=== PATIENT | male | born 1945 | race Caucasian/White ===

== ENCOUNTER 2018-07-23 13:23 | Inpatient (IN) | payer MEDICARE, MEDICAID ==
[~2018-07-23] VITALS: Ht 175.3 cm; Wt 118.8 kg
[~2018-07-23 13:23] MED LIST: ALLOPURINOL100 M1 ORAL; AMLODIPINE BESY10 MG ORAL; ASPIRIN EC81 MG ORAL; ATORVASTATIN CA40 MG ORAL; CARVEDILOL12.5 MG ORAL; FUROSEMIDE40 MG ORAL; HUMALOG100 UNIT/4 SUBQ; ISOSORBIDE1 G1 MC; LANTUS SOL100 UNIT/1 SUBQ; LOSARTAN POTAS100 MG ORAL; METFORMIN HCL500 M1 ORAL; OMEPRAZOLE20 M2 ORAL
[2018-07-23 13:40] VITALS: BP 175/81
[2018-07-23] MEDS ORDERED: Bacitracin Oint UD TOPIC ONE (14:00)
--- NOTE | 2018-07-23 14:11 | Emergency Room Report ---
History of Present Illness General Chief Complaint: Fever Source: Patient, Family Member Present Illness HPI Patient presents with 2 days of high fever and weakness. He had initial bout of chemotherapy for stage IV prostate cancer last week. Is complaining about oral lesions and pain. He states that pain is 2-3/10 and burning. He took Tylenol yesterday but has taken none today. He has some nausea. There is no vomiting. His stools are loose. They're dark in color but brown. He has difficulty urinating but this is chronic. There is no dysuria or hematuria. He is generalized weakness. No cough, chest pain, neck pain, rashes, joint pain, edema, calf pain, abdominal pain or back pain. In May 2017 he had a biopsy that showed Hoffman 4+5. He was started on Casodex and Lupron. There's spread to the femur and the pelvis and L5 and bilateral ribs with osseous metastasis. He was then started on Provenge from July 2017 08/26/2017. Radiation to the pelvic area was undertaken. Zytiga was started in addition to radiation. In June 2018 PSA was up at 4 again. He was recently changed from zytiga take to XTANDI. Other medications include insulin, vitamin D, vitamin B 12, magnesium, prednisone, Zofran, Compazine, Ativan, Decadron 4 mg, Lupron, allopurinol, Lantus, metformin, Plavix, amlodipine, Imdur, atorvastatin, Coreg, nitroglycerin , losartan, Lasix, Protonix and Flomax. He was started on docetaxel and warned about fever. Allergies: Coded Allergies: No Known Allergies (Verified , 11/07/07) Patient History Past Medical History: see triage record, old chart reviewed Social History: Denies: smoking Social History Narrative with daughter Reviewed Nursing Documentation: PMH: Agreed; PSxH: Agreed Nursing Documentation-PMH Past Medical History: No History, Except For Hx Cardiac Problems: Yes - stents x 5. Hx Hypertension: Yes Hx Diabetes: Yes Hx Cancer: Yes - skin cancer, prostate cx Hx Gastrointestinal Problems: No Hx Neurological Problems: No Review of Systems All Other Systems: negative except mentioned in HPI Physical Exam Vital Signs Date Time Temp Pulse Resp B/P (MAP) Pulse Ox O2 Delivery O2 Flow Rate FiO2 07/23/18 13:37 100.0 72 19 175/81 94 Room Air 100.0 Sp02 EP Interpretation: reviewed, normal General Appearance: well appearing, no apparent distress, GCS 15 Head: normocephalic Eyes: bilateral eye normal inspection, bilateral eye PERRL ENT: moist mucus membranes, other - chelosis, some oral lesions Neck: supple Respiratory: lungs clear, normal breath sounds Cardiovascular #1: regular rate, rhythm Cardiovascular #2: 2+ radial (R) Gastrointestinal: normal inspection, normal bowel sounds, non tender, no mass, non-distended Musculoskeletal: back normal, gait/station normal, normal range of motion Neurologic: alert, oriented x3, grossly normal Psychiatric: mood/affect normal Skin: normal inspection, warm/dry, other - venous disease Medical Decision Making Diagnostic Impression: Primary Impression: Fever Qualified Codes: R50.9 - Fever, unspecified Additional Impressions: Neutropenia Qualified Codes: D70.1 - Agranulocytosis secondary to cancer chemotherapy; T45.1X5A - Adverse effect of antineoplastic and immunosuppressive drugs, initial encounter Prostate cancer Mucositis ER Course Patient presents with fever on chemotherapy for stage of 4 prostate cancer. I differential includes sepsis, bacteremia, upper respiratory illness, oral lesions with infection, UTI, gastroenteritis amongst others. Evaluation will be with EKG, chest x-ray and labs including blood culture and lactate. Patient be treated with IV hydration, Zofran and Tylenol. EKG, no injury. CXR clear. Labs with leukopenia. UA clear. CMP high glucose , bili. Patient improved with IV hydration and tylenol. Due to leukopenia, admitted to hospital for consideration of treatment with broad spectrum antibiotics and monitoring of WBC. Discussed with Dr. Krueger who accepts the patient. Reverse isolation ordered. Laboratory Tests Test 07/23/18 14:09 07/23/18 14:35 White Blood Count 2.6 K/UL (4.8-10.8) L Red Blood Count 4.26 M/UL (4.70-6.10) L Hemoglobin 11.8 G/DL (14.2-18.0) L Hematocrit 36.7 % (42.0-52.0) L Mean Corpuscular Volume 86 FL (80-99) Mean Corpuscular Hemoglobin 27.8 PG (27.0-31.0) Mean Corpuscular Hemoglobin Concent 32.2 G/DL (32.0-36.0) Red Cell Distribution Width 12.5 % (11.6-14.8) Platelet Count 173 K/UL (150-450) Mean Platelet Volume 7.4 FL (6.5-10.1) Neutrophils (%) (Auto) % (45.0-75.0) Lymphocytes (%) (Auto) % (20.0-45.0) Monocytes (%) (Auto) % (1.0-10.0) Eosinophils (%) (Auto) % (0.0-3.0) Basophils (%) (Auto) % (0.0-2.0) Differential Total Cells Counted 100 Neutrophils % (Manual) 16 % (45-75) L Lymphocytes % (Manual) 53 % (20-45) H Monocytes % (Manual) 27 % (1-10) H Eosinophils % (Manual) 0 % (0-3) Basophils % (Manual) 0 % (0-2) Metamyelocytes % 1 % (0-0) H Myelocytes % 3 % (0-0) H Band Neutrophils 0 % (0-8) Platelet Estimate Adequate Platelet Morphology Normal Red Blood Cell Morphology Normal Prothrombin Time 10.5 SEC (9.30-11.50) Prothrombin Time INR 1.0 (0.9-1.1) PTT 29 SEC (23-33) Sodium Level 136 MMOL/L (136-145) Potassium Level 3.4 MMOL/L (3.5-5.1) L Chloride Level 103 MMOL/L (98-107) Carbon Dioxide Level 26 MMOL/L (21-32) Anion Gap 7 mmol/L (5-15) Blood Urea Nitrogen 16 mg/dL (7-18) Creatinine 1.1 MG/DL (0.55-1.30) Estimate Glomerular Filtration Rate > 60 mL/min (>60) Glucose Level 200 MG/DL (74-106) H Lactic Acid Level 1.00 mmol/L (0.4-2.0) Calcium Level 9.2 MG/DL (8.5-10.1) Magnesium Level 1.3 MG/DL (1.8-2.4) L Total Bilirubin 1.4 MG/DL (0.2-1.0) H Direct Bilirubin 0.3 MG/DL (0.0-0.3) Aspartate Amino Transferase (AST) 12 U/L (15-37) L Alanine Aminotransferase (ALT) 24 U/L (12-78) Alkaline Phosphatase 78 U/L (46-116) Total Creatine Kinase 42 U/L (26-308) Troponin I 0.010 ng/mL (0.000-0.056) Pro-B-Type Natriuretic Peptide 454 pg/mL (0-125) H Total Protein 6.3 G/DL (6.4-8.2) L Albumin 2.7 G/DL (3.4-5.0) L Globulin 3.6 g/dL Albumin/Globulin Ratio 0.8 (1.0-2.7) L Lipase 201 U/L (73-393) Urine Color Yellow Urine Appearance Clear Urine pH 6.5 (4.5-8.0) Urine Specific [place] 1.010 (1.005-1.035) Urine Protein 2+ (NEGATIVE) H Urine Glucose (UA) Negative (NEGATIVE) Urine Ketones Negative (NEGATIVE) Urine Blood Negative (NEGATIVE) Urine Nitrite Negative (NEGATIVE) Urine Bilirubin Negative (NEGATIVE) Urine Urobilinogen Normal MG/DL (0.0-1.0) Urine Leukocyte Esterase Negative (NEGATIVE) Urine RBC 0 /HPF (0 - 0) Urine WBC 0 /HPF (0 - 0) Urine Squamous Epithelial Cells None /LPF (NONE/OCC) Urine Amorphous Sediment Few /LPF (NONE) H Urine Bacteria None /HPF (NONE) EKG Diagnostic Results Rate: normal Rhythm: NSR ST Segments: no acute changes - RBBB 1st degree AV block, LVH Rhythm Strip Diag. Results EP Interpretation: yes Rhythm: NSR, no PVC's, no ectopy Chest X-Ray Diagnostic Results Chest X-Ray Diagnostic Results : Chest X-Ray Ordered: Yes # of Views/Limited/Complete: 1 View Indication: Other EP Interpretation: Yes Interpretation: no consolidation, no effusion, no pneumothorax, no acute cardiopulmonary disease Impression: No acute disease Electronically Signed by: Electronically signed by Hector Torres MD Last Vital Signs Date Time Temp Pulse Resp B/P (MAP) Pulse Ox O2 Delivery O2 Flow Rate FiO2 07/23/18 15:59 99.4 72 17 122/61 96 Room Air 99.4 Status: improved Disposition: ADMITTED INPATIENT Condition: Serious Hector Torres M.D. Jul 23, 2018 14:11
--- NOTE | 2018-07-23 14:27 | Diagnostic Imaging Report ---
EXAM: XR Chest, 1 View CLINICAL HISTORY: WEAK TECHNIQUE: Frontal view of the chest. COMPARISON: Chest x-ray dated 09/14/15 FINDINGS: Lungs: Unremarkable. The lungs appear clear. No confluent pulmonary opacities. Pleural space: Unremarkable. The costophrenic angles are sharp. No visible pneumothorax. Heart: Cardiomegaly. Mediastinum: Unremarkable. Bones/joints: Unremarkable. Tubes, lines and devices: EKG leads overlie the thorax. IMPRESSION: Cardiomegaly.
[2018-07-23 14:31] LABS: HEMATOCRIT 36.7 % (42.0-52.0); HEMOGLOBIN 11.8 G/DL (14.2-18.0); MEAN CORPUSCULAR VOLUME 86 FL (80-99); PLATELET COUNT 173 K/UL (150-450); RED BLOOD COUNT 4.26 M/UL (4.70-6.10); RED CELL DISTRIBUTION WIDTH 12.5 % (11.6-14.8); WHITE BLOOD COUNT 2.6 K/UL (4.8-10.8)
[2018-07-23 14:37] LABS: ANION GAP 7 mmol/L (5-15); BLOOD UREA NITROGEN 16 mg/dL (7-18); CALCIUM 9.2 MG/DL (8.5-10.1); CARBON DIOXIDE 26 MMOL/L (21-32); CHLORIDE 103 MMOL/L (98-107); CREATININE 1.1 MG/DL (0.55-1.30); POTASSIUM 3.4 MMOL/L (3.5-5.1); SODIUM 136 MMOL/L (136-145)
[2018-07-23 14:53] LABS: ALANINE AMINOTRANSFERASE 24 U/L (12-78); ALBUMIN 2.7 G/DL (3.4-5.0); ALBUMIN/GLOBULIN RATIO 0.8 (1.0-2.7); ALKALINE PHOSPHATASE 78 U/L (46-116); ASPARTATE AMINO TRANSFERASE 12 U/L (15-37); BILIRUBIN,TOTAL 1.4 MG/DL (0.2-1.0); CREATINE KINASE 42 U/L (26-308)
[2018-07-23 14:54] LABS: BILIRUBIN,DIRECT 0.3 MG/DL (0.0-0.3)
[2018-07-23 15:03] LABS: APPEARANCE,URINE CLEAR; BILIRUBIN, URINE NEGATIVE (NEGATIVE); GLUCOSE, URINE (UA) NEGATIVE (NEGATIVE); KETONES,URINE NEGATIVE (NEGATIVE); LEUKOCYTE ESTERASE ,URINE NEGATIVE (NEGATIVE); NITRITE,URINE NEGATIVE (NEGATIVE); PH,URINE 6.5 (4.5-8.0); PROTEIN,URINE 2+ (NEGATIVE); UROBILINOGEN,URINE NORMAL MG/DL (0.0-1.0)
[2018-07-23 15:04] LABS: COLOR,URINE YELLOW
[2018-07-23] MEDS ORDERED: DELTASONE20 MG PO (15:47)
[2018-07-23] MEDS ORDERED: NITROSTAT0.4 M1 SL (15:47)
[2018-07-23] MEDS ORDERED: VITAMIN D250000 UNI1 ORAL (15:47)
[2018-07-23] MEDS ORDERED: PROTONIX40 MG ORAL (15:47)
[2018-07-23] MEDS ORDERED: COZAAR50 MG ORAL (15:47)
[2018-07-23] MEDS ORDERED: DEXAMETHASONE2 MG PO (15:47)
[2018-07-23] MEDS ORDERED: TAMSULOSIN HCL0.4 MG ORAL (15:47)
[2018-07-23] MEDS ORDERED: MAGNESIUM200 M1 PO (15:47)
[2018-07-23] MEDS ORDERED: NOVOLOG100 UNITS1 SUBQ (15:47)
[2018-07-23] MEDS ORDERED: LEUPROLIDE1 MG/0.2 M SQ (15:47)
[2018-07-23] MEDS ORDERED: COMPAZINE10 MG ORAL (15:47)
[2018-07-23] MEDS ORDERED: ATIVAN1 MG ORAL (15:47)
[2018-07-23] MEDS ORDERED: VITAMIN B-12500 MCG ORAL (15:47)
[2018-07-23] MEDS ORDERED: PLAVIX75 MG ORAL (15:47)
[2018-07-23] MEDS ORDERED: ZOFRAN4 M3 ORAL (15:47)
[2018-07-23] MEDS ORDERED: FUROSEMIDE20 M1 ORAL (15:47)
[2018-07-23] MEDS ORDERED: Mylanta II UD 30ml ORAL PRN (15:52)
[2018-07-23 15:59] VITALS: BP 122/61
[2018-07-23] MEDS ORDERED: Cefepime HCl 2 GM in D5W 55 ML IVPB SCH (16:00)
[2018-07-23] MEDS ORDERED: Vancomycin 1 GM in D5W 275 ML IVPB SCH (16:00)
[2018-07-23 16:30] VITALS: BP 139/74
[2018-07-23] MEDS: 1/2NS w/KCl 20mEq 1000ml 1,000 ML IV SCH (17:34)
[2018-07-23] MEDS: Cefepime HCl 2 GM in D5W 55 ML IVPB SCH (17:35)
[2018-07-23] MEDS: NovoLOG Insulin Flexpen SUBQ SCH ×2 (17:36→20:44)
--- NOTE | 2018-07-23 18:16 | History and Physical ---
History of Present Illness General Date patient seen: Jul 23, 2018 Time patient seen: 17:00 Reason for Hospitalization: Fever Present Illness HPI 72 year old man with history of CAD, DM, HTN, stage 4 prostate cancer with bony mets, followed by Dr. Gold as outpatient, initiated on chemotherapy with docetaxel on 07/13/18 who presents with 2 days of progressive fatigue, weakness and fever up up to 100.3. Denies headache, neck stiffness, CP, dyspnea, cough, abdominal pain. Mild diarrhea reported and oral ulcers. In ED no definite source of infection was found and he was referred for admission. Allergies: Coded Allergies: No Known Allergies (Verified , 11/07/07) Medication History Scheduled Allopurinol* (Allopurinol*), 100 MG ORAL DAILY, (Reported) Amlodipine Besylate* (Amlodipine Besylate*), 10 MG ORAL DAILY, (Reported) Aspirin Ec* (Aspirin Ec*), 81 MG ORAL DAILY, (Reported) Atorvastatin Calcium* (Atorvastatin Calcium*), 80 MG ORAL BEDTIME, (Reported) Carvedilol* (Carvedilol*), 12.5 MG ORAL BID, (Reported) Clopidogrel Bisulfate* (Plavix*), 75 MG ORAL DAILY, (Reported) Cyanocobalamin (Vitamin B-12)* (Vitamin B-12*), 1,000 MCG ORAL DAILY, (Reported) Dexamethasone* (Decadron*), 4 MG PO BID, (Reported) Ergocalciferol (Vitamin D2)* (Vitamin D*), 2,000 MG ORAL ONCE A WEEK, (Reported) Furosemide* (Lasix*), 40 MG ORAL DAILY, (Reported) Furosemide* (Lasix*), 20 MG ORAL DAILY, (Reported) Insulin Aspart (Novolog Flexpen), 20 UNITS SUBQ AC, (Reported) Insulin Glargine (Lantus), 0 SUBQ BEDTIME, (Reported) Lorazepam* (Ativan*), 1 MG ORAL THREE TIMES A DAY, (Reported) Losartan Potassium (Losartan Potassium), 100 MG ORAL DAILY, (Reported) Losartan Potassium* (Cozaar*), 100 MG ORAL DAILY, (Reported) Metformin Hcl* (Metformin Hcl*), 100 MG ORAL BID, (Reported) Omeprazole (Omeprazole), 20 MG ORAL DAILY, (Reported) Pantoprazole* (Protonix*), 40 MG ORAL DAILY, (Reported) Prednisone (Deltasone), 5 MG PO BID, (Reported) Tamsulosin Hcl (Tamsulosin Hcl*), 0.4 MG ORAL BEDTIME, (Reported) Scheduled PRN Nitroglycerin (Nitrostat), 0.4 MG SL Q5M X3 DOSES PRN for CHEST PAIN, (Reported) Ondansetron* (Zofran*), 8 MG ORAL Q6H PRN for Nausea & Vomiting, (Reported) Prochlorperazine (Compazine*), 10 MG ORAL Q6H PRN for Nausea & Vomiting, ( Reported) Miscellaneous Medications Insulin Lispro (Humalog), Unknown Dose SUBQ, (Reported) Isosorbide (Isosorbide), 30 MG MC, (Reported) Leuprolide Acetate (Leuprolide Acetate), 1 MG SQ, (Reported) Magnesium (Magnesium), 400 MG PO, (Reported) Patient History Healthcare decision maker Resuscitation status Full Code Advanced Directive on File No Family History Family History: FHx: diabetes mellitus Social History Social History: (1) Former smoke Review of Systems Constitutional: Reports: chills, fever Eye: Denies: eye pain, blurred vision, double vision ENT: Denies: ear pain, ear discharge Respiratory: Denies: cough, orthopnea, shortness of breath Cardiovascular: Denies: chest pain, edema Gastrointestinal: Reports: diarrhea; Denies: abdominal pain Genitourinary: Denies: discharge, dysuria, frequency Musculoskeletal: Denies: joint pain, muscle pain Skin: Denies: rash, change in hair/nails Neurological: Denies: headache, numbness, paresthesia Endocrine: Denies: excessive sweating, flushing Hematologic/Lymphatic: Denies: anemia, blood clots Physical Exam General Appearance: no apparent distress, alert HEENT: normocephalic, atraumatic, other - Oral aphthous ulcers noted Neck: non-tender, supple Respiratory/Chest: chest wall non-tender, lungs clear, normal breath sounds Cardiovascular/Chest: normal peripheral pulses, normal rate, regular rhythm Abdomen: normal bowel sounds, non tender, soft, no organomegaly Extremities: normal range of motion, non-tender, normal inspection, no calf tenderness Skin Exam: normal pigmentation, warm/dry Neurologic: standard machine stitcher II-XII grossly normal, no motor/sensory deficits Musculoskeletal: normal muscle bulk, no effusion Last 24 Hour Vital Signs Date Time Temp Pulse Resp B/P (MAP) Pulse Ox O2 Delivery O2 Flow Rate FiO2 07/23/18 16:50 99.4 72 17 122/61 96 Room Air 99.4 07/23/18 16:47 Room Air 07/23/18 15:59 99.4 72 17 122/61 96 Room Air 99.4 07/23/18 15:00 99.4 07/23/18 14:30 100.0 07/23/18 13:40 100.0 72 19 175/81 94 Room Air 100.0 07/23/18 13:37 100.0 72 19 175/81 94 Room Air 100.0 Laboratory Tests Test 07/23/18 14:09 07/23/18 14:35 White Blood Count 2.6 K/UL (4.8-10.8) L Red Blood Count 4.26 M/UL (4.70-6.10) L Hemoglobin 11.8 G/DL (14.2-18.0) L Hematocrit 36.7 % (42.0-52.0) L Mean Corpuscular Volume 86 FL (80-99) Mean Corpuscular Hemoglobin 27.8 PG (27.0-31.0) Mean Corpuscular Hemoglobin Concent 32.2 G/DL (32.0-36.0) Red Cell Distribution Width 12.5 % (11.6-14.8) Platelet Count 173 K/UL (150-450) Mean Platelet Volume 7.4 FL (6.5-10.1) Neutrophils (%) (Auto) % (45.0-75.0) Lymphocytes (%) (Auto) % (20.0-45.0) Monocytes (%) (Auto) % (1.0-10.0) Eosinophils (%) (Auto) % (0.0-3.0) Basophils (%) (Auto) % (0.0-2.0) Differential Total Cells Counted 100 Neutrophils % (Manual) 16 % (45-75) L Lymphocytes % (Manual) 53 % (20-45) H Monocytes % (Manual) 27 % (1-10) H Eosinophils % (Manual) 0 % (0-3) Basophils % (Manual) 0 % (0-2) Metamyelocytes % 1 % (0-0) H Myelocytes % 3 % (0-0) H Band Neutrophils 0 % (0-8) Platelet Estimate Adequate Platelet Morphology Normal Red Blood Cell Morphology Normal Prothrombin Time 10.5 SEC (9.30-11.50) Prothromb Time International Ratio 1.0 (0.9-1.1) Activated Partial Thromboplast Time 29 SEC (23-33) Sodium Level 136 MMOL/L (136-145) Potassium Level 3.4 MMOL/L (3.5-5.1) L Chloride Level 103 MMOL/L (98-107) Carbon Dioxide Level 26 MMOL/L (21-32) Anion Gap 7 mmol/L (5-15) Blood Urea Nitrogen 16 mg/dL (7-18) Creatinine 1.1 MG/DL (0.55-1.30) Estimat Glomerular Filtration Rate > 60 mL/min (>60) Glucose Level 200 MG/DL (74-106) H Lactic Acid Level 1.00 mmol/L (0.4-2.0) Calcium Level 9.2 MG/DL (8.5-10.1) Magnesium Level 1.3 MG/DL (1.8-2.4) L Total Bilirubin 1.4 MG/DL (0.2-1.0) H Direct Bilirubin 0.3 MG/DL (0.0-0.3) Aspartate Amino Transf (AST/SGOT) 12 U/L (15-37) L Alanine Aminotransferase (ALT/SGPT) 24 U/L (12-78) Alkaline Phosphatase 78 U/L (46-116) Total Creatine Kinase 42 U/L (26-308) Troponin I 0.010 ng/mL (0.000-0.056) Pro-B-Type Natriuretic Peptide 454 pg/mL (0-125) H Total Protein 6.3 G/DL (6.4-8.2) L Albumin 2.7 G/DL (3.4-5.0) L Globulin 3.6 g/dL Albumin/Globulin Ratio 0.8 (1.0-2.7) L Lipase 201 U/L (73-393) Urine Color Yellow Urine Appearance Clear Urine pH 6.5 (4.5-8.0) Urine Specific [place] 1.010 (1.005-1.035) Urine Protein 2+ (NEGATIVE) H Urine Glucose (UA) Negative (NEGATIVE) Urine Ketones Negative (NEGATIVE) Urine Blood Negative (NEGATIVE) Urine Nitrite Negative (NEGATIVE) Urine Bilirubin Negative (NEGATIVE) Urine Urobilinogen Normal MG/DL (0.0-1.0) Urine Leukocyte Esterase Negative (NEGATIVE) Urine RBC 0 /HPF (0 - 0) Urine WBC 0 /HPF (0 - 0) Urine Squamous Epithelial Cells None /LPF (NONE/OCC) Urine Amorphous Sediment Few /LPF (NONE) H Urine Bacteria None /HPF (NONE) Height (Feet): 5 Height (Inches): 9.00 Weight (Pounds): 262 Medications Current Medications Medications (Trade) Dose Ordered Sig/Ashly Route PRN Reason Start Time Stop Time Status Last Admin Dose Admin Acetaminophen (Tylenol) 650 mg Q4H PRN ORAL Mild Pain (Pain Scale 1-3) 07/23/18 15:51 08/22/18 15:50 Al Hydroxide/Mg Hydroxide (Mylanta II) 30 ml Q6H PRN ORAL dyspepsia 07/23/18 15:52 08/22/18 15:51 Allopurinol (Zyloprim) 100 mg DAILY ORAL 07/24/18 09:00 08/23/18 08:59 UNV Amlodipine Besylate (Norvasc) 10 mg DAILY ORAL 07/24/18 09:00 08/23/18 08:59 UNV Aspirin (Ecotrin) 81 mg DAILY ORAL 07/24/18 09:00 08/23/18 08:59 UNV Atorvastatin Calcium (Lipitor) 80 mg BEDTIME ORAL 07/23/18 21:00 08/22/18 20:59 UNV Carvedilol (Coreg) 12.5 mg BID ORAL 07/23/18 18:00 08/22/18 17:59 UNV Cefepime HCl 2 gm/ Dextrose 55 ml @ 110 mls/hr Q12H IVPB 07/23/18 17:00 07/30/18 16:59 07/23/18 17:35 Clopidogrel Bisulfate (Plavix) 75 mg DAILY ORAL 07/24/18 09:00 08/23/18 08:59 UNV Cyanocobalamin (Vitamin B-12) 1,000 mcg DAILY ORAL 07/24/18 09:00 08/23/18 08:59 UNV Dexamethasone (Decadron) 4 mg BID ORAL 07/23/18 18:00 08/22/18 17:59 UNV Dextrose (Dextrose 50%) 25 ml Q30M PRN IV Hypoglycemia 07/23/18 15:53 08/22/18 15:52 Dextrose (Dextrose 50%) 50 ml Q30M PRN IV Hypoglycemia 07/23/18 15:52 08/22/18 15:51 Diphenhydramine HCl (Benadryl) 25 mg Q6H PRN ORAL Itching/Pruritis 07/23/18 15:52 08/22/18 15:51 Docusate Sodium (Colace) 100 mg EVERY 12 HOURS ORAL 07/23/18 21:00 08/22/18 20:59 Furosemide (Lasix) 20 mg DAILY ORAL 07/24/18 09:00 08/23/18 08:59 UNV Heparin Sodium (Porcine) (Heparin 5000 units/ml) 5,000 units EVERY 12 HOURS SUBQ 07/23/18 21:00 08/22/18 20:59 Insulin Aspart (NovoLOG) BEFORE MEALS AND HS SUBQ 07/23/18 16:30 08/22/18 16:29 07/23/18 17:36 Insulin Aspart (NovoLOG) 20 units BEFORE MEALS SUBQ 07/24/18 06:30 08/23/18 06:29 UNV Losartan Potassium (Cozaar) 100 mg DAILY ORAL 07/24/18 09:00 08/23/18 08:59 UNV Ondansetron HCl (Zofran) 4 mg Q6H PRN IVP Nausea & Vomiting 07/23/18 15:51 08/22/18 15:50 Pantoprazole (Protonix) 40 mg DAILY ORAL 07/24/18 09:00 08/23/18 08:59 UNV Polyethylene Glycol (Miralax) 17 gm HSPRN PRN ORAL Constipation 07/23/18 21:00 08/22/18 20:59 Sodium 1,000 ml @ 75 mls/hr [id number] IV 07/23/18 17:00 08/22/18 16:59 07/23/18 17:34 Sodium Chloride 1,000 ml @ 300 mls/hr Q3H20M IV 07/23/18 14:00 08/22/18 13:59 07/23/18 14:22 Tamsulosin HCl (Flomax) 0.4 mg BEDTIME ORAL 07/23/18 21:00 08/22/18 20:59 UNV Vancomycin HCl 1 gm/Dextrose 275 ml @ 183.708 mls/hr Q12H IVPB 07/23/18 18:00 07/28/18 17:59 Assessment/Plan Problem List: (1) Sepsis ICD Codes: A41.9 - Sepsis, unspecified organism SNOMED: 01226016 (2) Neutropenia ICD Codes: D70.9 - Neutropenia, unspecified SNOMED: 576598741 Qualifiers: Qualified Codes: D70.1 - Agranulocytosis secondary to cancer chemotherapy; T45.1X5A - Adverse effect of antineoplastic and immunosuppressive drugs, initial encounter (3) Prostate cancer ICD Codes: C61 - Malignant neoplasm of prostate SNOMED: 109084689 Assessment/Plan 72 year old man undergoing chemotherapy for stage 4 prostate cancer with bony mets who presents with fever, malaise and weakness, found to have febrile neutropenia. 1)Sepsis, neutropenia without a source, will admit to telemetry unit, start broad spectrum antibiotic with vancomycin and cefepime per my discussion with ID. Monitor vancomycin levels per protocol. Check blood cultures. 2)History of stage IV prostate cancer, neutropenia, neutropenic precautions, spoke with Onc who will see patient, may benefit from Neupogen 3)CAD, Essential HTN, continue outpatient antihypertensives and monitor vitals 4)Type 2 DM, variable control, resume home Lantus dosing along with ISS 5)Mild hypokelamia and hypomagnesemia, replace with IV fluids and check BMP in AM VTE PPx heparin SC Full Code Patient will require a hospitalization crossing 2 midnights in order to get IV antibiotics and close hemodynamic monitoring. He is high risk for progression to severe sepsis and shock given his immunocompromised state. Abhi Gardner MD Jul 23, 2018 18:16
[2018-07-23] MEDS: Vancomycin 1 GM in D5W 275 ML IVPB SCH (19:57)
[2018-07-23 20:00] VITALS: BP 129/60
[2018-07-23] MEDS: Levemir Flexpen SUBQ SCH (20:17)
[2018-07-23] MEDS: Atorvastatin 80mg tab ORAL SCH (20:41)
[2018-07-23] MEDS: Tamsulosin 0.4mg cap ORAL SCH (20:41)
[2018-07-23] MEDS: Docusate 100mg cap ORAL SCH (20:41)
[2018-07-23] MEDS: Heparin 5000 units/ml inj SUBQ SCH (20:42)
[2018-07-23] MEDS: Carvedilol 12.5mg tab ORAL SCH (20:49)
[2018-07-23] MEDS ORDERED: Miralax 17gm pkt ORAL PRN (21:00)
[2018-07-24] VITALS (7 sets, daily range): BP systolic 141–149; BP diastolic 72–86
[2018-07-24] MEDS: Cefepime HCl 2 GM in D5W 55 ML IVPB SCH (05:34)
[2018-07-24] MEDS: Vancomycin 1 GM in D5W 275 ML IVPB SCH (06:22)
[2018-07-24] MEDS: 1/2NS w/KCl 20mEq 1000ml 1,000 ML IV SCH ×2 (06:23→20:48)
[2018-07-24] MEDS: NovoLOG Insulin Flexpen SUBQ SCH ×7 (06:31→20:50)
[2018-07-24 08:25] LABS: HEMATOCRIT 37.5 % (42.0-52.0); HEMOGLOBIN 12.4 G/DL (14.2-18.0); MEAN CORPUSCULAR VOLUME 87 FL (80-99); PLATELET COUNT 166 K/UL (150-450); RED BLOOD COUNT 4.31 M/UL (4.70-6.10); RED CELL DISTRIBUTION WIDTH 12.3 % (11.6-14.8)
[2018-07-24 08:27] LABS: WHITE BLOOD COUNT 1.9 K/UL (4.8-10.8)
[2018-07-24] MEDS: Docusate 100mg cap ORAL SCH ×2 (08:46→20:48)
[2018-07-24] MEDS: Losartan 50mg tab ORAL SCH (08:46)
[2018-07-24] MEDS: Allopurinol 100mg Tab ORAL SCH (08:47)
[2018-07-24] MEDS: Aspirin EC 81mg tab ORAL SCH (08:47)
[2018-07-24] MEDS: Carvedilol 12.5mg tab ORAL SCH ×2 (08:47→20:48)
[2018-07-24] MEDS: Vitamin B-12 500mcg tab ORAL SCH (08:47)
[2018-07-24 08:49] LABS: ALANINE AMINOTRANSFERASE 26 U/L (12-78); ALBUMIN 2.7 G/DL (3.4-5.0); ALBUMIN/GLOBULIN RATIO 0.7 (1.0-2.7); ALKALINE PHOSPHATASE 75 U/L (46-116); ANION GAP 10 mmol/L (5-15); ASPARTATE AMINO TRANSFERASE 11 U/L (15-37); BILIRUBIN,TOTAL 1.5 MG/DL (0.2-1.0); BLOOD UREA NITROGEN 13 mg/dL (7-18); CALCIUM 8.8 MG/DL (8.5-10.1); CARBON DIOXIDE 26 MMOL/L (21-32); CHLORIDE 105 MMOL/L (98-107); CREATININE 0.9 MG/DL (0.55-1.30); POTASSIUM 3.6 MMOL/L (3.5-5.1); SODIUM 140 MMOL/L (136-145)
[2018-07-24] MEDS: Heparin 5000 units/ml inj SUBQ SCH ×2 (08:51→20:49)
[2018-07-24] MEDS: Levemir Flexpen SUBQ SCH ×2 (08:52→17:11)
[2018-07-24 08:56] LABS: BILIRUBIN,DIRECT 0.2 MG/DL (0.0-0.3)
[2018-07-24] MEDS ORDERED: TBO-Filgrastim 300 mcg/0.5ml SQ ONE (10:00)
--- NOTE | 2018-07-24 14:49 | Consultation ---
Consult Note Consult Note Oncology Consultation SAMREEN OLIVAS: Singh Bangura DOS: 07/24/2018 RFC: Prostate cancer and leukopenia HPI 72 year old man with history of CAD, DM, HTN, stage 4 prostate cancer with bony mets, followed by Dr. Gold as outpatient, initiated on chemotherapy with docetaxel on 07/13/18 who presents with 2 days of progressive fatigue, weakness and fever up up to 100.3. Denies headache, neck stiffness, CP, dyspnea, cough, abdominal pain. Mild diarrhea reported and oral ulcers. In ED no definite source of infection was found and he was referred for admission. Noted to have leukopenia and heme was consulted. Allergies: No Known Allergies (Verified , 11/07/07) Medication History Scheduled Allopurinol* (Allopurinol*), 100 MG ORAL DAILY, (Reported) Amlodipine Besylate* (Amlodipine Besylate*), 10 MG ORAL DAILY, (Reported) Aspirin Ec* (Aspirin Ec*), 81 MG ORAL DAILY, (Reported) Atorvastatin Calcium* (Atorvastatin Calcium*), 80 MG ORAL BEDTIME, (Reported) Carvedilol* (Carvedilol*), 12.5 MG ORAL BID, (Reported) Clopidogrel Bisulfate* (Plavix*), 75 MG ORAL DAILY, (Reported) Cyanocobalamin (Vitamin B-12)* (Vitamin B-12*), 1,000 MCG ORAL DAILY, (Reported) Dexamethasone* (Decadron*), 4 MG PO BID, (Reported) Ergocalciferol (Vitamin D2)* (Vitamin D*), 2,000 MG ORAL ONCE A WEEK, (Reported) Furosemide* (Lasix*), 40 MG ORAL DAILY, (Reported) Furosemide* (Lasix*), 20 MG ORAL DAILY, (Reported) Insulin Aspart (Novolog Flexpen), 20 UNITS SUBQ AC, (Reported) Insulin Glargine (Lantus), 0 SUBQ BEDTIME, (Reported) Lorazepam* (Ativan*), 1 MG ORAL THREE TIMES A DAY, (Reported) Losartan Potassium (Losartan Potassium), 100 MG ORAL DAILY, (Reported) Losartan Potassium* (Cozaar*), 100 MG ORAL DAILY, (Reported) Metformin Hcl* (Metformin Hcl*), 100 MG ORAL BID, (Reported) Omeprazole (Omeprazole), 20 MG ORAL DAILY, (Reported) Pantoprazole* (Protonix*), 40 MG ORAL DAILY, (Reported) Prednisone (Deltasone), 5 MG PO BID, (Reported) Tamsulosin Hcl (Tamsulosin Hcl*), 0.4 MG ORAL BEDTIME, (Reported) Scheduled PRN Nitroglycerin (Nitrostat), 0.4 MG SL Q5M X3 DOSES PRN for CHEST PAIN, (Reported) Ondansetron* (Zofran*), 8 MG ORAL Q6H PRN for Nausea & Vomiting, (Reported) Prochlorperazine (Compazine*), 10 MG ORAL Q6H PRN for Nausea & Vomiting, ( Reported) Miscellaneous Medications Insulin Lispro (Humalog), Unknown Dose SUBQ, (Reported) Isosorbide (Isosorbide), 30 MG MC, (Reported) Leuprolide Acetate (Leuprolide Acetate), 1 MG SQ, (Reported) Magnesium (Magnesium), 400 MG PO, (Reported) Family History Family History: FHx: diabetes mellitus Social History Social History: (1) Former smoke Review of Systems Constitutional: Reports: chills, fever Eye: Denies: eye pain, blurred vision, double vision ENT: Denies: ear pain, ear discharge Respiratory: Denies: cough, orthopnea Cardiovascular: Denies: chest pain, edema Gastrointestinal: Reports: diarrhea; Denies Genitourinary: Denies: discharge Musculoskeletal: Denies: joint pain Skin: Denies: rash, change in hair/nails Neurological: Denies: headache, numbness Endocrine: Denies: excessive sweating Physical Exam General Appearance: no apparent distress, alert HEENT: normocephalic, atraumatic, ++ Oral aphthous ulcers noted Neck: non-tender, supple Respiratory/Chest: chest wall non-tender, lungs clear Cardiovascular/Chest: normal peripheral pulses, normal rate Abdomen: normal bowel sounds, non tender, soft, no organomegaly Extremities: normal range of motion, non-tender Skin Exam: normal pigmentation, warm/dry 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 Laboratory Tests Test 07/24/18 07:05 White Blood Count 1.9 K/UL (4.8-10.8) *L Red Blood Count 4.31 M/UL (4.70-6.10) L Hemoglobin 12.4 G/DL (14.2-18.0) L Hematocrit 37.5 % (42.0-52.0) L Mean Corpuscular Volume 87 FL (80-99) Mean Corpuscular Hemoglobin 28.8 PG (27.0-31.0) Mean Corpuscular Hemoglobin Concent 33.1 G/DL (32.0-36.0) Red Cell Distribution Width 12.3 % (11.6-14.8) Platelet Count 166 K/UL (150-450) Mean Platelet Volume 8.4 FL (6.5-10.1) Neutrophils (%) (Auto) % (45.0-75.0) Lymphocytes (%) (Auto) % (20.0-45.0) Monocytes (%) (Auto) % (1.0-10.0) Eosinophils (%) (Auto) % (0.0-3.0) Basophils (%) (Auto) % (0.0-2.0) Differential Total Cells Counted 100 Neutrophils % (Manual) 34 % (45-75) L Lymphocytes % (Manual) 50 % (20-45) H Monocytes % (Manual) 13 % (1-10) H Eosinophils % (Manual) 0 % (0-3) Basophils % (Manual) 0 % (0-2) Band Neutrophils 3 % (0-8) Platelet Estimate Adequate Platelet Morphology Normal Red Blood Cell Morphology Normal Sodium Level 140 MMOL/L (136-145) Potassium Level 3.6 MMOL/L (3.5-5.1) Chloride Level 105 MMOL/L (98-107) Carbon Dioxide Level 26 MMOL/L (21-32) Anion Gap 10 mmol/L (5-15) Blood Urea Nitrogen 13 mg/dL (7-18) Creatinine 0.9 MG/DL (0.55-1.30) Estimat Glomerular Filtration Rate > 60 mL/min (>60) Glucose Level 244 MG/DL (74-106) H Calcium Level 8.8 MG/DL (8.5-10.1) Total Bilirubin 1.5 MG/DL (0.2-1.0) H Direct Bilirubin 0.2 MG/DL (0.0-0.3) Aspartate Amino Transf (AST/SGOT) 11 U/L (15-37) L Alanine Aminotransferase (ALT/SGPT) 26 U/L (12-78) Alkaline Phosphatase 75 U/L (46-116) Total Protein 6.8 G/DL (6.4-8.2) Albumin 2.7 G/DL (3.4-5.0) L Globulin 4.1 g/dL Albumin/Globulin Ratio 0.7 (1.0-2.7) L Assessment and Recs: 72 year old man undergoing chemotherapy for stage 4 prostate cancer with bony mets who presents with fever, malaise and weakness, found to have febrile neutropenia. # History of stage IV prostate cancer, neutropenia, neutropenic precautions --> noted to have leukopenia and sepsis --> administer one dose of neupogen sq x 1 --> outpatient management with Dr. Gold --> getting per patient prednisone, xgeva, docetaxel, lupron as well # Anemia of chronic disease and from anti-neoplastic agents --> w.u in the past has been reviewed # Sepsis, neutropenia without a source, will admit to telemetry unit, start broad spectrum antibiotics --> vancomycin and cefepime per my discussion with ID. Monitor vancomycin levels per protocol. Check blood cultures. # CAD, Essential HTN, continue outpatient antihypertensives and monitor vitals --> asa as needed as per cards # Type 2 DM, variable control, resume home Lantus dosing along with ISS --> endo prn # Mild hypokelamia and hypomagnesemia, replace with IV fluids and check BMP in AM Greatly appreciate consultation! Bolivar Henson MD Jul 24, 2018 14:49
--- NOTE | 2018-07-24 14:50 | General Progress Note ---
Assessment/Plan Problem List: (1) Sepsis ICD Codes: A41.9 - Sepsis, unspecified organism SNOMED: 93516092 (2) Neutropenia ICD Codes: D70.9 - Neutropenia, unspecified SNOMED: 631358601 Qualifiers: Qualified Codes: D70.1 - Agranulocytosis secondary to cancer chemotherapy; T45.1X5A - Adverse effect of antineoplastic and immunosuppressive drugs, initial encounter (3) Prostate cancer ICD Codes: C61 - Malignant neoplasm of prostate SNOMED: 205310867 Status: progressing Assessment/Plan Sepsis, febrile neutropenia, mucositis, symptomatically improved although still with neutropenia, continue with vancomycin, check drug levels, continue cefepime. Follow up blood cultures. Granix given. ID and Oncology consulted. Chech CBC in AM. History of stage IV prostate cancer, continue neutropenic precautions. CAD, Essential HTN, continue outpatient antihypertensives meds Type 2 DM, variable control, on reduced dose Levimir, will increase back to outpatient dose if maintains good oral intake. Hypomagnesemia, replace with IV Magnesium. Mild hypokalemia, resolved. VTE PPx heparin SC Full Code Findings and plan discussed with family at bedside. Subjective Date patient seen: Jul 24, 2018 Time patient seen: 14:42 ROS Limited/Unobtainable: Yes Constitutional: Denies: chills, fever HEENT: Reports: mouth pain Cardiovascular: Denies: chest pain, edema, irregular heart rate Respiratory: Denies: cough, orthopnea, shortness of breath, SOB with excertion Gastrointestinal/Abdominal: Denies: abdomen distended, abdominal pain, black stools Genitourinary: Denies: frequency Hematologic/Lymphatic: Denies: easy bleeding Allergies: Coded Allergies: No Known Allergies (Verified , 11/07/07) Subjective Medicine followup for sepsis, febrile neutropenia, hypomagnesemia, he feels much better today, much less fatigue and weakness. Appetite is good. Source of infection not identified thus far. Objective Last 24 Hour Vital Signs Date Time Temp Pulse Resp B/P (MAP) Pulse Ox O2 Delivery O2 Flow Rate FiO2 07/24/18 12:10 97.7 65 20 141/83 (102) 96 97.7 07/24/18 08:47 67 141/73 07/24/18 08:46 141/73 07/24/18 08:46 67 141/73 07/24/18 08:00 98.4 73 18 143/86 (105) 94 98.4 07/24/18 07:30 Room Air 07/24/18 04:00 98.2 67 18 141/73 (95) 94 98.2 07/24/18 00:00 98.5 66 21 149/77 (101) 95 98.5 07/23/18 21:00 Room Air 07/23/18 20:49 63 129/60 07/23/18 20:00 97.8 63 19 129/60 (83) 95 97.8 07/23/18 16:50 99.4 72 17 122/61 96 Room Air 99.4 07/23/18 16:47 Room Air 07/23/18 16:30 98.3 68 18 139/74 (95) 98.3 07/23/18 15:59 99.4 72 17 122/61 96 Room Air 99.4 07/23/18 15:00 99.4 Intake and Output 07/23/18 07/24/18 19:00 07:00 Intake Total 2055 ml 2355 ml Output Total 2100 ml Balance 2055 ml 255 ml Intake Oral 1000 ml 1230 ml IV Total 1055 ml 1125 ml Output Urine Total 2100 ml # Voids 3 Laboratory Tests 07/24/18 07:05: White Blood Count 1.9*L, Red Blood Count 4.31L, Hemoglobin 12.4L, Hematocrit 37.5L, Mean Corpuscular Volume 87, Mean Corpuscular Hemoglobin 28.8, Mean Corpuscular Hemoglobin Concent 33.1, Red Cell Distribution Width 12.3, Platelet Count 166, Mean Platelet Volume 8.4, Neutrophils (%) (Auto) , Lymphocytes (%) ( Auto) , Monocytes (%) (Auto) , Eosinophils (%) (Auto) , Basophils (%) (Auto) , Differential Total Cells Counted 100, Neutrophils % (Manual) 34L, Lymphocytes % (Manual) 50H, Monocytes % (Manual) 13H, Eosinophils % (Manual) 0, Basophils % ( Manual) 0, Band Neutrophils 3, Platelet Estimate Adequate, Platelet Morphology Normal, Red Blood Cell Morphology Normal, Sodium Level 140, Potassium Level 3.6 , Chloride Level 105, Carbon Dioxide Level 26, Anion Gap 10, Blood Urea Nitrogen 13, Creatinine 0.9, Estimat Glomerular Filtration Rate > 60, Glucose Level 244H, Calcium Level 8.8, Total Bilirubin 1.5H, Direct Bilirubin 0.2, Aspartate Amino Transf (AST/SGOT) 11L, Alanine Aminotransferase (ALT/SGPT) 26, Alkaline Phosphatase 75, Total Protein 6.8, Albumin 2.7L, Globulin 4.1, Albumin/ Globulin Ratio 0.7L Height (Feet): 5 Height (Inches): 9.00 Weight (Pounds): 262 General Appearance: no apparent distress, alert EENT: other - Angular stomatitis, aphthous ulcers noted on oral mucosa Neck: supple, normal inspection Cardiovascular: normal peripheral pulses, normal rate, regular rhythm Respiratory/Chest: chest wall non-tender, lungs clear, normal breath sounds Abdomen: normal bowel sounds, non tender, soft, no organomegaly Extremities: normal range of motion, non-tender 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
[2018-07-24] MEDS: Cefepime HCl 2 GM in NS 55 ML IVPB SCH (16:41)
[2018-07-24] MEDS: Vancomycin 1 GM in NS 275 ML IVPB SCH (17:13)
--- NOTE | 2018-07-24 18:31 | Infectious Diseases Prog Note ---
Assessment/Plan Assessment/Plan Full consult to follow: A) 1) possible sepsis, neutropenia, fevers 2) st 4 prostate ca, recent chemotherapy 3) cad, dm, htn 4) allergies - nkda P) 1) vancomycin and cefepime - day # 2 2) f/u on cultures, monitor temperatures, monitor labs 3) if remains afebrile and clinically stable then consider oral abx - cipro plus augmentin - for remainder of antibiotic course 4) duration of antibiotic treatment will depend on culture results, recovery of neutropenia and patient remaining afebrile 5) d/w Dr. Barakat and daughter Subjective Allergies: Coded Allergies: No Known Allergies (Verified , 11/07/07) Objective Vital Signs Last 24 Hour Vital Signs Date Time Temp Pulse Resp B/P (MAP) Pulse Ox O2 Delivery O2 Flow Rate FiO2 07/24/18 16:19 98.5 62 18 147/74 (98) 96 98.5 07/24/18 12:10 97.7 65 20 141/83 (102) 96 97.7 07/24/18 08:47 67 141/73 07/24/18 08:46 141/73 07/24/18 08:46 67 141/73 07/24/18 08:00 98.4 73 18 143/86 (105) 94 98.4 07/24/18 07:30 Room Air 07/24/18 04:00 98.2 67 18 141/73 (95) 94 98.2 07/24/18 00:00 98.5 66 21 149/77 (101) 95 98.5 07/23/18 21:00 Room Air 07/23/18 20:49 63 129/60 07/23/18 20:00 97.8 63 19 129/60 (83) 95 97.8 Height (Feet): 5 Height (Inches): 9.00 Weight (Pounds): 262 Laboratory Tests Test 07/24/18 07:05 White Blood Count 1.9 K/UL (4.8-10.8) *L Red Blood Count 4.31 M/UL (4.70-6.10) L Hemoglobin 12.4 G/DL (14.2-18.0) L Hematocrit 37.5 % (42.0-52.0) L Mean Corpuscular Volume 87 FL (80-99) Mean Corpuscular Hemoglobin 28.8 PG (27.0-31.0) Mean Corpuscular Hemoglobin Concent 33.1 G/DL (32.0-36.0) Red Cell Distribution Width 12.3 % (11.6-14.8) Platelet Count 166 K/UL (150-450) Mean Platelet Volume 8.4 FL (6.5-10.1) Neutrophils (%) (Auto) % (45.0-75.0) Lymphocytes (%) (Auto) % (20.0-45.0) Monocytes (%) (Auto) % (1.0-10.0) Eosinophils (%) (Auto) % (0.0-3.0) Basophils (%) (Auto) % (0.0-2.0) Differential Total Cells Counted 100 Neutrophils % (Manual) 34 % (45-75) L Lymphocytes % (Manual) 50 % (20-45) H Monocytes % (Manual) 13 % (1-10) H Eosinophils % (Manual) 0 % (0-3) Basophils % (Manual) 0 % (0-2) Band Neutrophils 3 % (0-8) Platelet Estimate Adequate Platelet Morphology Normal Red Blood Cell Morphology Normal Sodium Level 140 MMOL/L (136-145) Potassium Level 3.6 MMOL/L (3.5-5.1) Chloride Level 105 MMOL/L (98-107) Carbon Dioxide Level 26 MMOL/L (21-32) Anion Gap 10 mmol/L (5-15) Blood Urea Nitrogen 13 mg/dL (7-18) Creatinine 0.9 MG/DL (0.55-1.30) Estimat Glomerular Filtration Rate > 60 mL/min (>60) Glucose Level 244 MG/DL (74-106) H Calcium Level 8.8 MG/DL (8.5-10.1) Total Bilirubin 1.5 MG/DL (0.2-1.0) H Direct Bilirubin 0.2 MG/DL (0.0-0.3) Aspartate Amino Transf (AST/SGOT) 11 U/L (15-37) L Alanine Aminotransferase (ALT/SGPT) 26 U/L (12-78) Alkaline Phosphatase 75 U/L (46-116) Total Protein 6.8 G/DL (6.4-8.2) Albumin 2.7 G/DL (3.4-5.0) L Globulin 4.1 g/dL Albumin/Globulin Ratio 0.7 (1.0-2.7) L Current Medications Medications (Trade) Dose Ordered Sig/Ashly Route PRN Reason Start Time Stop Time Status Last Admin Dose Admin Acetaminophen (Tylenol) 650 mg Q4H PRN ORAL Mild Pain (Pain Scale 1-3) 07/23/18 15:51 08/22/18 15:50 Al Hydroxide/Mg Hydroxide (Mylanta II) 30 ml Q6H PRN ORAL dyspepsia 07/23/18 15:52 08/22/18 15:51 Allopurinol (Zyloprim) 100 mg DAILY ORAL 07/24/18 09:00 08/23/18 08:59 07/24/18 08:47 Amlodipine Besylate (Norvasc) 10 mg DAILY ORAL 07/24/18 09:00 08/23/18 08:59 07/24/18 08:46 Aspirin (Ecotrin) 81 mg DAILY ORAL 07/24/18 09:00 08/23/18 08:59 07/24/18 08:47 Atorvastatin Calcium (Lipitor) 80 mg BEDTIME ORAL 07/23/18 21:00 08/22/18 20:59 07/23/18 20:41 Carvedilol (Coreg) 12.5 mg Q12HR ORAL 07/23/18 21:00 08/22/18 20:59 07/24/18 08:47 Cefepime HCl 2 gm/ Sodium Chloride 55 ml @ 110 mls/hr Q12H IVPB 07/24/18 17:00 07/31/18 16:59 07/24/18 16:41 Clopidogrel Bisulfate (Plavix) 75 mg DAILY ORAL 07/24/18 09:00 08/23/18 08:59 07/24/18 08:48 Cyanocobalamin (Vitamin B-12) 1,000 mcg DAILY ORAL 07/24/18 09:00 08/23/18 08:59 07/24/18 08:47 Dexamethasone (Decadron) 4 mg BID ORAL 07/23/18 18:00 08/22/18 17:59 07/24/18 17:12 Dextrose (Dextrose 50%) 25 ml Q30M PRN IV Hypoglycemia 07/23/18 15:53 08/22/18 15:52 Dextrose (Dextrose 50%) 50 ml Q30M PRN IV Hypoglycemia 07/23/18 15:52 08/22/18 15:51 Diphenhydramine HCl (Benadryl) 25 mg Q6H PRN ORAL Itching/Pruritis 07/23/18 15:52 08/22/18 15:51 Docusate Sodium (Colace) 100 mg EVERY 12 HOURS ORAL 07/23/18 21:00 08/22/18 20:59 07/24/18 08:46 Furosemide (Lasix) 20 mg DAILY ORAL 07/24/18 09:00 08/23/18 08:59 07/24/18 08:47 Heparin Sodium (Porcine) (Heparin 5000 units/ml) 5,000 units EVERY 12 HOURS SUBQ 07/24/18 21:00 08/23/18 20:59 Insulin Aspart (NovoLOG) BEFORE MEALS AND HS SUBQ 07/23/18 16:30 08/22/18 16:29 07/24/18 16:40 Insulin Aspart (NovoLOG) 20 units BEFORE MEALS SUBQ 07/24/18 06:30 08/23/18 06:29 07/24/18 16:41 Insulin Detemir (Levemir) 25 units BID SUBQ 07/23/18 20:00 08/22/18 19:59 07/24/18 17:11 Losartan Potassium (Cozaar) 100 mg DAILY ORAL 07/24/18 09:00 08/23/18 08:59 07/24/18 08:46 Ondansetron HCl (Zofran) 4 mg Q6H PRN IVP Nausea & Vomiting 07/23/18 15:51 08/22/18 15:50 Pantoprazole (Protonix) 40 mg DAILY ORAL 07/24/18 09:00 08/23/18 08:59 07/24/18 08:47 Polyethylene Glycol (Miralax) 17 gm HSPRN PRN ORAL Constipation 07/23/18 21:00 08/22/18 20:59 Prednisone (predniSONE) 5 mg BID ORAL 07/24/18 09:00 08/23/18 08:59 07/24/18 17:12 Sodium 1,000 ml @ 75 mls/hr [id number] IV 07/23/18 17:00 08/22/18 16:59 07/24/18 06:23 Tamsulosin HCl (Flomax) 0.4 mg BEDTIME ORAL 07/23/18 21:00 08/22/18 20:59 07/23/18 20:41 Vancomycin HCl 1 gm/Sodium Chloride 275 ml @ 183.708 mls/hr Q12HR@0600,1800 IVPB 07/24/18 18:00 07/29/18 17:59 07/24/18 17:13 Cris Rivera MD Jul 24, 2018 18:30
[2018-07-24] MEDS: Atorvastatin 80mg tab ORAL SCH (20:48)
[2018-07-24] MEDS: Tamsulosin 0.4mg cap ORAL SCH (20:48)
[2018-07-25] VITALS: BP 148/75
[2018-07-25 04:00] VITALS: BP 140/70
[2018-07-25] MEDS: Cefepime HCl 2 GM in NS 55 ML IVPB SCH (05:06)
[2018-07-25 05:30] LABS: BASOPHILS % (AUTO) 0.6 % (0.0-2.0); HEMATOCRIT 36.1 % (42.0-52.0); HEMOGLOBIN 12.5 G/DL (14.2-18.0); LYMPHOCYTES % (AUTO) 8.2 % (20.0-45.0); MEAN CORPUSCULAR VOLUME 87 FL (80-99); MONOCYTES % (AUTO) 10.5 % (1.0-10.0); NEUTROPHILS % (AUTO) 80.7 % (45.0-75.0); PLATELET COUNT 187 K/UL (150-450); RED BLOOD COUNT 4.15 M/UL (4.70-6.10); RED CELL DISTRIBUTION WIDTH 12.1 % (11.6-14.8); WHITE BLOOD COUNT 14.5 K/UL (4.8-10.8)
[2018-07-25 05:49] LABS: ANION GAP 7 mmol/L (5-15); BLOOD UREA NITROGEN 17 mg/dL (7-18); CALCIUM 8.3 MG/DL (8.5-10.1); CARBON DIOXIDE 26 MMOL/L (21-32); CHLORIDE 106 MMOL/L (98-107); POTASSIUM 3.9 MMOL/L (3.5-5.1); SODIUM 139 MMOL/L (136-145)
[2018-07-25] MEDS: Vancomycin 1 GM in NS 275 ML IVPB SCH (06:24)
[2018-07-25] MEDS: NovoLOG Insulin Flexpen SUBQ SCH ×4 (06:25→12:09)
[2018-07-25] MEDS ORDERED: Vancomycin 1250mg/D5W 250ml 250 ML IVPB SCH ×2 (07:00→18:00)
--- NOTE | 2018-07-25 07:16 | General Progress Note ---
Assessment/Plan Assessment/Plan # History of stage IV prostate cancer, neutropenia, neutropenic precautions --> noted to have leukopenia and sepsis --> administer one dose of neupogen sq x 1 --> outpatient management with Dr. Gold ([facility]) --> getting per patient prednisone, xgeva, docetaxel, lupron as well --> may need further treatment once discharged if progresses # Anemia of chronic disease and from anti-neoplastic agents --> w.u in the past has been reviewed --> epogen as per onco outpatient as needed # Leukopenia --> IMPROVED status post one dose of neupogen --> CAN BE DISCHARGED PER HEME CLEARED # Sepsis, neutropenia without a source, will admit to telemetry unit, start broad spectrum antibiotics --> vancomycin and cefepime per my discussion with ID. Monitor vancomycin levels per protocol. Check blood cultures. --> monitor closely # CAD, Essential HTN, continue outpatient antihypertensives and monitor vitals --> asa as needed as per cards # Type 2 DM, variable control, resume home Lantus dosing along with ISS --> endo prn # Mild hypokelamia and hypomagnesemia, replace with IV fluids and check BMP in AM Greatly appreciate consultation! Subjective Constitutional: Denies: no symptoms, chills, diaphoresis, fever, malaise, weakness, other HEENT: Denies: no symptoms, eye pain, blurred vision, tearing, double vision, ear pain, ear discharge, nose pain, nose congestion, throat pain, throat swelling, mouth pain, mouth swelling, other Cardiovascular: Denies: no symptoms, chest pain, edema, irregular heart rate, lightheadedness, palpitations, syncope, other Gastrointestinal/Abdominal: Denies: no symptoms, abdomen distended, abdominal pain, black stools, tarry stools, blood in stool, constipated, diarrhea, difficulty swallowing, nausea, poor appetite, poor fluid intake, rectal bleeding , vomiting, other Genitourinary: Denies: no symptoms, burning, discharge, frequency, flank pain, hematuria, incontinence, pain, urgency, other Neurologic/Psychiatric: Denies: no symptoms, anxiety, depressed, emotional problems, headache, numbness, paresthesia, pre-existing deficit, seizure, tingling, tremors, weakness, other Endocrine: Denies: no symptoms, excessive sweating, flushing, intolerance to cold, intolerance to heat, increased hunger, increased thirst, increased urine, unexplained weight gain, unexplained weight loss, other Hematologic/Lymphatic: Denies: no symptoms, anemia, easy bleeding, easy bruising, other Allergies: Coded Allergies: No Known Allergies (Verified , 11/07/07) Subjective doing better, got neupogen yesterday 1 dose Objective Last 24 Hour Vital Signs Date Time Temp Pulse Resp B/P (MAP) Pulse Ox O2 Delivery O2 Flow Rate FiO2 07/25/18 04:00 97.6 61 18 140/70 (93) 97 97.6 07/25/18 00:00 98.0 60 18 148/75 (99) 97 98.0 07/24/18 21:00 Room Air 07/24/18 20:48 65 147/73 07/24/18 20:00 98.0 65 18 147/73 (97) 97 98.0 07/24/18 18:33 65 18 147/72 (97) 95 07/24/18 16:19 98.5 62 18 147/74 (98) 96 98.5 07/24/18 12:10 97.7 65 20 141/83 (102) 96 97.7 07/24/18 08:47 67 141/73 07/24/18 08:46 141/73 07/24/18 08:46 67 141/73 07/24/18 08:00 98.4 73 18 143/86 (105) 94 98.4 07/24/18 07:30 Room Air Intake and Output 07/24/18 07/25/18 19:00 07:00 Intake Total 2315.000 ml 1425 ml Balance 2315.000 ml 1425 ml Intake Oral 1200 ml 750 ml IV Total 1115.000 ml 675 ml # Voids 3 3 # Bowel Movements 1 Laboratory Tests 07/25/18 05:10: White Blood Count 14.5#H, Red Blood Count 4.15L, Hemoglobin 12.5L, Hematocrit 36.1L, Mean Corpuscular Volume 87, Mean Corpuscular Hemoglobin 30.2, Mean Corpuscular Hemoglobin Concent 34.8, Red Cell Distribution Width 12.1, Platelet Count 187, Mean Platelet Volume 8.2, Neutrophils (%) (Auto) 80.7H, Lymphocytes ( %) (Auto) 8.2L, Monocytes (%) (Auto) 10.5H, Eosinophils (%) (Auto) 0.0, Basophils (%) (Auto) 0.6, Sodium Level 139, Potassium Level 3.9, Chloride Level 106, Carbon Dioxide Level 26, Anion Gap 7, Blood Urea Nitrogen 17, Creatinine 1.0, Estimat Glomerular Filtration Rate , Glucose Level 208H, Calcium Level 8.3L , Magnesium Level 1.8, Vancomycin Level Trough 7.9 Height (Feet): 5 Height (Inches): 9.00 Weight (Pounds): 262 General Appearance: alert EENT: TMs normal Neck: normal alignment Cardiovascular: regular rhythm Respiratory/Chest: lungs clear Abdomen: soft Extremities: normal range of motion Edema: 1+ Arm (R), 1+ Leg (L), 1+ Leg (R), 1+ Pedal (L) Edema: mild edema Neurologic: alert Skin: normal pigmentation Bolivar Henson MD Jul 25, 2018 07:16
[2018-07-25 08:00] VITALS: BP 165/92
[2018-07-25 08:30] VITALS: BP 160/82
[2018-07-25] MEDS: Levemir Flexpen SUBQ SCH (08:37)
[2018-07-25] MEDS: Carvedilol 12.5mg tab ORAL SCH (08:41)
[2018-07-25] MEDS: Docusate 100mg cap ORAL SCH (08:41)
[2018-07-25] MEDS: Aspirin EC 81mg tab ORAL SCH (08:42)
[2018-07-25] MEDS: Allopurinol 100mg Tab ORAL SCH (08:43)
[2018-07-25] MEDS: Vitamin B-12 500mcg tab ORAL SCH (08:43)
[2018-07-25] MEDS: Heparin 5000 units/ml inj SUBQ SCH (08:45)
[2018-07-25] MEDS: Losartan 50mg tab ORAL SCH (08:48)
[2018-07-25 12:00] VITALS: BP_SYST 148; BP_SYST 165; BP_DIAS 79; BP_DIAS 87
[2018-07-25] MEDS: 1/2NS w/KCl 20mEq 1000ml 1,000 ML IV SCH (12:20)
--- NOTE | 2018-07-25 13:06 | Consultation ---
History of Present Illness General Date patient seen: Jul 23, 2018 Chief Complaint: Fever Present Illness HPI 72 year old man with history of CAD, DM, HTN, stage 4 prostate cancer. the pt has anxiety and insomnia,. per daughter he has episodes of depression however he takes ativan at night and before major procedure or treatment. Allergies: Coded Allergies: No Known Allergies (Verified , 11/07/07) Medication History Scheduled Allopurinol* (Allopurinol*), 100 MG ORAL DAILY, (Reported) Amlodipine Besylate* (Amlodipine Besylate*), 10 MG ORAL DAILY, (Reported) Aspirin Ec* (Aspirin Ec*), 81 MG ORAL DAILY, (Reported) Atorvastatin Calcium* (Atorvastatin Calcium*), 80 MG ORAL BEDTIME, (Reported) Carvedilol* (Carvedilol*), 12.5 MG ORAL BID, (Reported) Clopidogrel Bisulfate* (Plavix*), 75 MG ORAL DAILY, (Reported) Cyanocobalamin (Vitamin B-12)* (Vitamin B-12*), 1,000 MCG ORAL DAILY, (Reported) Dexamethasone* (Decadron*), 4 MG PO BID, (Reported) Ergocalciferol (Vitamin D2)* (Vitamin D*), 2,000 MG ORAL ONCE A WEEK, (Reported) Furosemide* (Lasix*), 40 MG ORAL DAILY, (Reported) Furosemide* (Lasix*), 20 MG ORAL DAILY, (Reported) Insulin Aspart (Novolog Flexpen), 20 UNITS SUBQ AC, (Reported) Insulin Glargine (Lantus), 0 SUBQ BEDTIME, (Reported) Lorazepam* (Ativan*), 1 MG ORAL THREE TIMES A DAY, (Reported) Losartan Potassium (Losartan Potassium), 100 MG ORAL DAILY, (Reported) Losartan Potassium* (Cozaar*), 100 MG ORAL DAILY, (Reported) Metformin Hcl* (Metformin Hcl*), 100 MG ORAL BID, (Reported) Omeprazole (Omeprazole), 20 MG ORAL DAILY, (Reported) Pantoprazole* (Protonix*), 40 MG ORAL DAILY, (Reported) Prednisone (Deltasone), 5 MG PO BID, (Reported) Tamsulosin Hcl (Tamsulosin Hcl*), 0.4 MG ORAL BEDTIME, (Reported) Scheduled PRN Nitroglycerin (Nitrostat), 0.4 MG SL Q5M X3 DOSES PRN for CHEST PAIN, (Reported) Ondansetron* (Zofran*), 8 MG ORAL Q6H PRN for Nausea & Vomiting, (Reported) Prochlorperazine (Compazine*), 10 MG ORAL Q6H PRN for Nausea & Vomiting, ( Reported) Miscellaneous Medications Insulin Lispro (Humalog), Unknown Dose SUBQ, (Reported) Isosorbide (Isosorbide), 30 MG MC, (Reported) Leuprolide Acetate (Leuprolide Acetate), 1 MG SQ, (Reported) Magnesium (Magnesium), 400 MG PO, (Reported) Patient History Limited by: medical condition History Provided By: Patient, Medical Record Healthcare decision maker Resuscitation status Full Code Advanced Directive on File No Past Medical/Surgical History Past Medical/Surgical History: (1) Accelerated hypertension (2) Acute coronary syndrome (3) Uncontrolled diabetes mellitus type 2 without complications (4) Chest pain (5) Former smoke (6) Sepsis (7) Mucositis (8) Fever (9) Neutropenia (10) Prostate cancer Review of Systems Psychiatric: Reports: prior hx, anxiety, depressed feelings, emotional problems Physical Exam General Appearance: no apparent distress, alert Neurologic: oriented x 3, responsive, depressed affect Last 24 Hour Vital Signs Date Time Temp Pulse Resp B/P (MAP) Pulse Ox O2 Delivery O2 Flow Rate FiO2 07/25/18 09:07 Room Air 07/25/18 08:48 160/82 07/25/18 08:48 65 160/82 07/25/18 08:41 65 160/82 07/25/18 08:30 65 160/82 (108) 07/25/18 08:00 98.7 69 18 165/92 (116) 96 98.7 07/25/18 04:00 97.6 61 18 140/70 (93) 97 97.6 07/25/18 00:00 98.0 60 18 148/75 (99) 97 98.0 07/24/18 21:00 Room Air 07/24/18 20:48 65 147/73 07/24/18 20:00 98.0 65 18 147/73 (97) 97 98.0 07/24/18 18:33 65 18 147/72 (97) 95 07/24/18 16:19 98.5 62 18 147/74 (98) 96 98.5 Intake and Output 07/24/18 07/25/18 19:00 07:00 Intake Total 2315.000 ml 1425 ml Balance 2315.000 ml 1425 ml Intake Oral 1200 ml 750 ml IV Total 1115.000 ml 675 ml # Voids 3 3 # Bowel Movements 1 Laboratory Tests Test 07/25/18 05:10 White Blood Count 14.5 K/UL (4.8-10.8) #H Red Blood Count 4.15 M/UL (4.70-6.10) L Hemoglobin 12.5 G/DL (14.2-18.0) L Hematocrit 36.1 % (42.0-52.0) L Mean Corpuscular Volume 87 FL (80-99) Mean Corpuscular Hemoglobin 30.2 PG (27.0-31.0) Mean Corpuscular Hemoglobin Concent 34.8 G/DL (32.0-36.0) Red Cell Distribution Width 12.1 % (11.6-14.8) Platelet Count 187 K/UL (150-450) Mean Platelet Volume 8.2 FL (6.5-10.1) Neutrophils (%) (Auto) 80.7 % (45.0-75.0) H Lymphocytes (%) (Auto) 8.2 % (20.0-45.0) L Monocytes (%) (Auto) 10.5 % (1.0-10.0) H Eosinophils (%) (Auto) 0.0 % (0.0-3.0) Basophils (%) (Auto) 0.6 % (0.0-2.0) Sodium Level 139 MMOL/L (136-145) Potassium Level 3.9 MMOL/L (3.5-5.1) Chloride Level 106 MMOL/L (98-107) Carbon Dioxide Level 26 MMOL/L (21-32) Anion Gap 7 mmol/L (5-15) Blood Urea Nitrogen 17 mg/dL (7-18) Creatinine 1.0 MG/DL (0.55-1.30) Estimat Glomerular Filtration Rate mL/min (>60) Glucose Level 208 MG/DL (74-106) H Calcium Level 8.3 MG/DL (8.5-10.1) L Magnesium Level 1.8 MG/DL (1.8-2.4) Vancomycin Level Trough 7.9 ug/mL (5.0-12.0) Height (Feet): 5 Height (Inches): 9.00 Weight (Pounds): 262 Medications Current Medications Medications (Trade) Dose Ordered Sig/Ashly Route PRN Reason Start Time Stop Time Status Last Admin Dose Admin Acetaminophen (Tylenol) 650 mg Q4H PRN ORAL Mild Pain (Pain Scale 1-3) 07/23/18 15:51 08/22/18 15:50 07/25/18 01:03 Al Hydroxide/Mg Hydroxide (Mylanta II) 30 ml Q6H PRN ORAL dyspepsia 07/23/18 15:52 08/22/18 15:51 Allopurinol (Zyloprim) 100 mg DAILY ORAL 07/24/18 09:00 08/23/18 08:59 07/25/18 08:43 Amlodipine Besylate (Norvasc) 10 mg DAILY ORAL 07/24/18 09:00 08/23/18 08:59 07/25/18 08:48 Aspirin (Ecotrin) 81 mg DAILY ORAL 07/24/18 09:00 08/23/18 08:59 07/25/18 08:42 Atorvastatin Calcium (Lipitor) 80 mg BEDTIME ORAL 07/23/18 21:00 08/22/18 20:59 07/24/18 20:48 Carvedilol (Coreg) 12.5 mg Q12HR ORAL 07/23/18 21:00 08/22/18 20:59 07/25/18 08:41 Cefepime HCl 2 gm/ Sodium Chloride 55 ml @ 110 mls/hr Q12H IVPB 07/24/18 17:00 07/31/18 16:59 07/25/18 05:06 Clopidogrel Bisulfate (Plavix) 75 mg DAILY ORAL 07/24/18 09:00 08/23/18 08:59 07/25/18 08:43 Cyanocobalamin (Vitamin B-12) 1,000 mcg DAILY ORAL 07/24/18 09:00 08/23/18 08:59 07/25/18 08:43 Dexamethasone (Decadron) 4 mg BID ORAL 07/23/18 18:00 08/22/18 17:59 07/25/18 08:42 Dextrose (Dextrose 50%) 25 ml Q30M PRN IV Hypoglycemia 07/23/18 15:53 08/22/18 15:52 Dextrose (Dextrose 50%) 50 ml Q30M PRN IV Hypoglycemia 07/23/18 15:52 08/22/18 15:51 Diphenhydramine HCl (Benadryl) 25 mg Q6H PRN ORAL Itching/Pruritis 07/23/18 15:52 08/22/18 15:51 07/25/18 01:03 Docusate Sodium (Colace) 100 mg EVERY 12 HOURS ORAL 07/23/18 21:00 08/22/18 20:59 07/25/18 08:41 Furosemide (Lasix) 20 mg DAILY ORAL 07/24/18 09:00 08/23/18 08:59 07/25/18 08:42 Heparin Sodium (Porcine) (Heparin 5000 units/ml) 5,000 units EVERY 12 HOURS SUBQ 07/24/18 21:00 08/23/18 20:59 07/25/18 08:45 Insulin Aspart (NovoLOG) BEFORE MEALS AND HS SUBQ 07/23/18 16:30 08/22/18 16:29 07/25/18 12:09 Insulin Aspart (NovoLOG) 20 units BEFORE MEALS SUBQ 07/24/18 06:30 08/23/18 06:29 07/25/18 12:08 Insulin Detemir (Levemir) 25 units BID SUBQ 07/23/18 20:00 08/22/18 19:59 07/25/18 08:37 Losartan Potassium (Cozaar) 100 mg DAILY ORAL 07/24/18 09:00 08/23/18 08:59 07/25/18 08:48 Ondansetron HCl (Zofran) 4 mg Q6H PRN IVP Nausea & Vomiting 07/23/18 15:51 08/22/18 15:50 Pantoprazole (Protonix) 40 mg DAILY ORAL 07/24/18 09:00 08/23/18 08:59 07/25/18 08:43 Polyethylene Glycol (Miralax) 17 gm HSPRN PRN ORAL Constipation 07/23/18 21:00 08/22/18 20:59 Prednisone (predniSONE) 5 mg BID ORAL 07/24/18 09:00 08/23/18 08:59 07/25/18 08:43 Sodium 1,000 ml @ 75 mls/hr [id number] IV 07/23/18 17:00 08/22/18 16:59 07/25/18 12:20 Tamsulosin HCl (Flomax) 0.4 mg BEDTIME ORAL 07/23/18 21:00 08/22/18 20:59 07/24/18 20:48 Vancomycin HCl/ Dextrose 250 ml @ 170 mls/hr Q12HR@0600,1800 IVPB 07/25/18 18:00 07/30/18 17:59 Assessment/Plan Assessment/Plan Anxiety d/o adjustment d/o ativan Joe Conroy MD Jul 25, 2018 13:06
[2018-07-25] MEDS ORDERED: CIPROFLOXACIN500 M2 ORAL (14:22)
[2018-07-25] MEDS ORDERED: AUGMENTIN 875-1 EAC1 ORAL (14:22)
--- NOTE | 2018-07-25 14:32 | Discharge Summary ---
Discharge Summary Hospital Course Date of Admission Jul 23, 2018 at 14:34 Date of Discharge 07/25/18 Admitting Diagnosis Fever/Weakness HPI Joshua Mulligan is a 73 year old male who was admitted on Jul 23, 2018 at 14: 34 for Fever,Weakness Consultations ID Heme/Onc Hospital Course Patient presented with fever and weakness, admitted to the medical service with febrile neutropenia, presumed sepsis. He was treated with empiric vancomycin and cefepime per ID recs, no definite source of infection was identified although final blood cultures are pending, one set with [facility] suspicious for contaminant. He was seen by Oncology, given a dose of Neupogen with improvement in neutropenia, his symptoms have resolved and would like to go home. He will continue Augmentin and Cipro for another 5 days and follow up with his PCP next week. I spoke with his PCP Dr. Gomez to update her on the hospitalization, a message has also been left with his Oncologist Dr. Gold. Time spent in preparing discharge was 45 minutes including time spent coordinating care with nursing and consultants along with providing discharge instructions to patient and family Discharge Medications New Medications: Amoxicillin/Potassium Clav 875-125* (Augmentin 875-125 Tablet*) 1 Each Tablet 1 TAB ORAL TWICE A DAY, #10 TAB Ciprofloxacin Hcl* (Ciprofloxacin Hcl*) 500 Mg Tablet 500 MG ORAL Q12H for 5 Days, #10 TAB 0 Refills Continued Medications: Allopurinol* (Allopurinol*) 100 Mg Tablet 100 MG ORAL DAILY, TAB Amlodipine Besylate* (Amlodipine Besylate*) 10 Mg Tablet 10 MG ORAL DAILY, TAB Aspirin Ec* (Aspirin Ec*) 81 Mg Tablet.dr 81 MG ORAL DAILY, TAB Atorvastatin Calcium* (Atorvastatin Calcium*) 40 Mg Tablet 80 MG ORAL BEDTIME, TAB Carvedilol* (Carvedilol*) 12.5 Mg Tablet 12.5 MG ORAL BID, TAB Clopidogrel Bisulfate* (Plavix*) 75 Mg Tablet 75 MG ORAL DAILY, TAB (This prescription has been renewed) Cyanocobalamin (Vitamin B-12)* (Vitamin B-12*) 500 Mcg Tablet 1000 MCG ORAL DAILY, #30 TAB 0 Refills (This prescription has been renewed) Dexamethasone* (Decadron*) 2 Mg Tablet 4 MG PO BID, TAB (This prescription has been renewed) Ergocalciferol (Vitamin D2)* (Vitamin D*) 50,000 Unit Capsule 2000 MG ORAL ONCE A WEEK, CAP (This prescription has been renewed) Furosemide* (Lasix*) 40 Mg Tablet 40 MG ORAL DAILY, TAB Furosemide* (Lasix*) 20 Mg Tablet 20 MG ORAL DAILY, TAB (This prescription has been renewed) Insulin Aspart (Novolog Flexpen) 100 Unit/1 Ml Insuln.pen 20 UNITS SUBQ AC (This prescription has been renewed) Insulin Glargine (Lantus) 100 Unit/1 Ml Insuln.pen 0 SUBQ BEDTIME, #1 EA 0 Refills Insulin Lispro (Humalog) 100 Unit/1 Ml Cartridge Unknown Dose SUBQ, #1 UNITS 0 Refills Isosorbide (Isosorbide) 1 Gm Powder 30 MG MC, GM Leuprolide Acetate (Leuprolide Acetate) 1 Mg/0.2 Ml Kit 1 MG SQ, KIT (This prescription has been renewed) Lorazepam* (Ativan*) 1 Mg Tablet 1 MG ORAL THREE TIMES A DAY, TAB (This prescription has been renewed) Losartan Potassium (Losartan Potassium) 100 Mg Tablet 100 MG ORAL DAILY, TAB Losartan Potassium* (Cozaar*) 50 Mg Tablet 100 MG ORAL DAILY, TAB (This prescription has been renewed) Magnesium (Magnesium) 200 Mg Tablet 400 MG PO, TAB (This prescription has been renewed) Metformin Hcl* (Metformin Hcl*) 500 Mg Tablet 100 MG ORAL BID, TAB Nitroglycerin (Nitrostat) 0.4 Mg Tab.subl 0.4 MG SL Q5M X3 DOSES PRN for CHEST PAIN, #25 TAB 0 Refills (This prescription has been renewed) Omeprazole (Omeprazole) 20 Mg Capsule.dr 20 MG ORAL DAILY, CAP Ondansetron* (Zofran*) 4 Mg Tablet 8 MG ORAL Q6H PRN for Nausea & Vomiting, TAB (This prescription has been renewed ) Pantoprazole* (Protonix*) 40 Mg Tablet.dr 40 MG ORAL DAILY, TAB (This prescription has been renewed) Prednisone (Deltasone) 20 Mg Tablet 5 MG PO BID, TAB (This prescription has been renewed) Prochlorperazine (Compazine*) 10 Mg Tablet 10 MG ORAL Q6H PRN for Nausea & Vomiting, TAB (This prescription has been renewed) Tamsulosin Hcl (Tamsulosin Hcl*) 0.4 Mg Cap.er.24h 0.4 MG ORAL BEDTIME, CAP (This prescription has been renewed) Discharge Discharge Disposition Patient was discharged to Discharge Diagnoses: (1) Sepsis (2) Neutropenia (3) Accelerated hypertension Abhi Gardner MD Jul 25, 2018 14:32
[2018-07-25 16:00] VITALS: BP 165/87
--- NOTE | 2018-07-26 11:00 | Consultation ---
DATE OF CONSULTATION: 07/24/2018 INFECTIOUS DISEASE CONSULTATION CONSULTING PHYSICIAN: Cirs Rivera M.D. ATTENDING PHYSICIAN: Yolie Winters M.D. REFERRING PHYSICIAN: Dr. Winters REASON FOR CONSULTATION: Neutropenic fevers, possible sepsis. CHIEF COMPLAINT: The patient's chief complaint coming in to the hospital is neutropenic fevers, possible sepsis. HISTORY OF PRESENT ILLNESS: This is a very pleasant 72-year-old male, who has history of prostate cancer with bony mets, who is being seen by an oncologist in the outpatient setting, who initiated chemotherapy with docetaxel on July 03, 2018. The patient presents with fevers to [facility] with progressive weakness. The patient came in with neutropenia and Infectious Disease consultation was requested for antibiotic management. I discussed the case with primary and the patient was started on vancomycin and cefepime. Cultures are pending at this time in regard to blood cultures. MAR was noted. Orders were noted. Notes were reviewed. Case was discussed with the patient, the patient's daughter, and the RN. Also, the case was discussed with primary. PAST MEDICAL HISTORY: Includes history of the following. The patient has past medical history of prostate cancer with mets. He has history of hypertension, diabetes, and CAD. He comes in with neutropenia and anemia. MEDICATIONS: Upon reviewing the MAR, he is on the following medications. He is on vancomycin and cefepime. He is getting heparin, allopurinol, amlodipine, Norvasc, clopidogrel, and aspirin. He is on furosemide and losartan. He is on Cozaar, Protonix, Lasix, prednisone, insulin, docusate, atorvastatin or Lipitor, carvedilol or Coreg, abx, diphenhydramine, acetaminophen, and Zofran. Outside medications were noted and reconciliated. ALLERGIES: No known drug allergies. SOCIAL HISTORY: Negative for smoking, alcohol, or drug abuse. FAMILY HISTORY: Noncontributory. Negative for exposure to tuberculosis or cancer. REVIEW OF SYSTEMS: CONSTITUTIONAL: I do not believe he has central line when I asked him. He has no focal changes, but he has had generalized weakness and fatigue. He came in with fever and chills. HEAD AND NECK: No head pain or neck pain. No thrush or dysphagia. CARDIAC: No chest pain or palpitations. GASTROINTESTINAL: No nausea, vomiting, diarrhea, or abdominal pain. GENITOURINARY: No dysuria or frequency. PULMONARY: No congestion, no secretions. SKIN: No rash. EXTREMITIES: No extremity pain. NEUROLOGIC: No seizures. PHYSICAL EXAMINATION: VITAL SIGNS: I saw the patient yesterday. His temperature was 97.7, pulse rate 65, respiratory rate 20, blood pressure 140/83, and saturation 96%. T-max 100.0, documented 100.3. GENERAL: Alert and responsive, in no acute distress. HEAD AND NECK: Oral exam, no thrush. Eye exam, no icterus. No JVD. Normocephalic. No icterus or thrush. Neck is supple. LUNGS: Clear bilaterally. No rhonchi or rales. HEART: Regular. No gallop or murmur. ABDOMEN: Soft. Positive bowel sounds. Nontender. SKIN: No rash. MUSCULOSKELETAL: No effusion. Legs are without cellulitis. PERIPHERAL VASCULAR: No cyanosis or gangrene. No septic arthritis. No rash. GENITOURINARY: No Nelson. LINE SITES: Without phlebitis. NEUROLOGIC: Intact and nonfocal. Alert and oriented x3. LABORATORY AND DIAGNOSTIC DATA: Laboratory data is as follows. White count 1.9, hemoglobin 12.4, and platelet count 166,000; differential, the patient has 34% neutrophils. Initially, he had white count of 2.6 and 16 %, neutrophils. Creatinine is 0.9. LFTs were noted. Chest x-ray shows no acute cardiopulmonary disease, just cardiomegaly, it did not show focal consolidation. UA was leukocyte esterase negative. Cultures are pending in regard to blood cultures. ASSESSMENT AND PLAN: 1. The patient has possible sepsis with neutropenia and fevers. The patient is status post recent chemotherapy. At this time, we will continue vancomycin and cefepime and check blood culture results. The patient is getting Neupogen for the neutropenia. Continue vancomycin and cefepime. Follow up on cultures. If the patient becomes afebrile and continues to be afebrile, and the neutropenia corrects itself, then consider switching oral antibiotics to Augmentin and Cipro. The length of antibiotic treatment will depend on how long the patient is afebrile and his neutropenia resolves. We will continue vancomycin and cefepime for now. 2. CAD. 3. Diabetes. 4. Hypertension. 5. Anemia. 6. Leukopenia. 7. Recent chemotherapy. 8. Prostate cancer with bony mets, status post chemotherapy. 9. Diabetes and hypertension, treatment per primary. 10. Past medical history noted. 11. No known allergies. 12. Social history negative. 13. Family history noncontributory. 14. MAR was noted. 15. Case was discussed with RN. 16. Continue treatment per primary consultants. Cris Rivera M.D. DR: SUSAN JOB#: [id number] CC: ONESIMO
--- NOTE | 2018-07-26 19:11 | Cardiology Report ---
APPROVED REPORT EKG Measurement Heart [id number] Sinus rhythm with 1st degree AV block with premature atrial complexes Left axis deviation Right bundle branch block Minimal voltage criteria for LVH, may be normal variant Septal infarct, age undetermined Abnormal ECG
== END 2018-07-25 17:00 | disposition home or self-care (01) | DRG 872 ==
LOC: EMR 14:10 → 4E 14:34 → EDBEDREQ 16:00 → 4E 17:00
DX: A41.9 Sepsis, unspecified organism (principal); C79.51 Secondary malignant neoplasm of bone; C61 Malignant neoplasm of prostate; D70.9 Neutropenia, unspecified; R50.81 Fever presenting with conditions classified elsewhere; I10 Essential (primary) hypertension; I25.10 Atherosclerotic heart disease of native coronary artery without angina pectoris; E11.9 Type 2 diabetes mellitus without complications; Z87.891 Personal history of nicotine dependence; D63.8 Anemia in other chronic diseases classified elsewhere; E87.6 Hypokalemia; E83.42 Hypomagnesemia; Z79.02 Long term (current) use of antithrombotics/antiplatelets; Z79.82 Long term (current) use of aspirin; Z79.4 Long term (current) use of insulin; F41.9 Anxiety disorder, unspecified; K12.30 Oral mucositis (ulcerative), unspecified
CPT/HCPCS: 36415; 71045; 80048; 80053; 80202; 81003; 82248; 82550; 82962; 83605; 83690; 83735; 83880; 84484; 85007; 85025; 85610; 85730; 87040; 93005; 96361; 96374; 99285; 99291; J1815; J2405; S5561

== ENCOUNTER 2019-04-16 07:30 | Emergency (ER) | payer MEDICARE, MEDICAID ==
[~2019-04-16] VITALS: Ht 175.3 cm; Wt 115.7 kg
[~2019-04-16 07:30] MED LIST changes: +ATIVAN1 MG ORAL; +AUGMENTIN 875-1 EAC1 ORAL; +CIPROFLOXACIN500 M2 ORAL; +COMPAZINE10 MG ORAL; +COZAAR50 MG ORAL; +DELTASONE20 MG PO; +DEXAMETHASONE2 MG PO; +FUROSEMIDE20 M1 ORAL; +LEUPROLIDE1 MG/0.2 M SQ; +MAGNESIUM200 M1 PO; +NITROSTAT0.4 M1 SL; +NOVOLOG100 UNITS1 SUBQ; +PLAVIX75 MG ORAL; +PROTONIX40 MG ORAL; +TAMSULOSIN HCL0.4 MG ORAL; +VITAMIN B-12500 MCG ORAL; +VITAMIN D250000 UNI1 ORAL; +ZOFRAN4 M3 ORAL
[2019-04-16 08:05] LABS: APPEARANCE,URINE SLIGHTLY CLOUDY; BILIRUBIN, URINE NEGATIVE (NEGATIVE); COLOR,URINE PALE YELLOW; GLUCOSE, URINE (UA) NEGATIVE (NEGATIVE); KETONES,URINE NEGATIVE (NEGATIVE); LEUKOCYTE ESTERASE ,URINE NEGATIVE (NEGATIVE); NITRITE,URINE NEGATIVE (NEGATIVE); PH,URINE 7 (4.5-8.0); PROTEIN,URINE NEGATIVE (NEGATIVE); UROBILINOGEN,URINE NORMAL MG/DL (0.0-1.0)
--- NOTE | 2019-04-16 08:05 | NUR ---
ED Nurse Note: pt with snider cath inserted without resistance. clear light yellow urine draining 1000ml immediately. pt reports relief of pain. urine sample sent.
--- NOTE | 2019-04-16 09:01 | NUR ---
ED Nurse Note:leg bag attached with intact urinary catheter. pt tolerates well states feeling much better has follow up appt with md. amb steady gait out of ed with family. a/ox4 vss.
[2019-04-16 09:06] VITALS: BP 148/89
--- NOTE | 2019-04-16 09:34 | Emergency Room Report ---
History of Present Illness General Chief Complaint: Hypertension Source: Patient Present Illness HPI 73-year-old male presents ED for evaluation. Daughter at bedside states that patient has been unable to urinate for the last few days. History of prostate cancer with metastasis. States has been currently treated by a urologist and his oncologist. States that he was seen by the urologist last week and was told that his prostate is not enlarged. Denies dysuria or hematuria. Denies fevers or chills. Denies any pain. No other aggravating relieving factors. Denies any other associated symptoms Allergies: Coded Allergies: No Known Allergies (Verified , 11/07/07) Patient History Past Medical History: DM, HTN, AL, CAD, other - prostate cancer Past Surgical History: none Pertinent Family History: none Social History: Denies: smoking, alcohol use, drug use Immunizations: UTD Reviewed Nursing Documentation: PMH: Agreed; PSxH: Agreed Nursing Documentation-PMH Past Medical History: No History, Except For Hx Cardiac Problems: Yes - 5 stents placed in 09/2016 Hx Hypertension: Yes Hx Diabetes: Yes Hx Cancer: Yes - skin cancer, prostate cancer Hx Gastrointestinal Problems: No Hx Neurological Problems: No Review of Systems All Other Systems: negative except mentioned in HPI Physical Exam Vital Signs Date Time Temp Pulse Resp B/P (MAP) Pulse Ox O2 Delivery O2 Flow Rate FiO2 04/16/19 07:35 97.5 85 20 157/90 (112) 97 Room Air Sp02 EP Interpretation: reviewed, normal General Appearance: no apparent distress, alert, GCS 15, non-toxic Head: normocephalic, atraumatic Eyes: bilateral eye normal inspection, bilateral eye PERRL ENT: hearing grossly normal, normal pharynx, no angioedema, normal voice Neck: full range of motion, supple/symm/no masses Respiratory: chest non-tender, lungs clear, normal breath sounds, speaking full sentences Cardiovascular #1: regular rate, rhythm, no edema Cardiovascular #2: 2+ carotid (R), 2+ carotid (L), 2+ radial (R), 2+ radial (L) , 2+ dorsalis pedis (R), 2+ dorsalis pedis (L) Gastrointestinal: normal bowel sounds, non tender, soft, non-distended, no guarding, no rebound Rectal: deferred Genitourinary: normal inspection, no CVA tenderness Musculoskeletal: back normal, gait/station normal, normal range of motion, non- tender Neurologic: alert, oriented x3, responsive, motor strength/tone normal, sensory intact, speech normal Psychiatric: judgement/insight normal, memory normal, mood/affect normal, no suicidal/homicidal ideation Reflexes: 3+ bicep (R), 3+ bicep (L), 3+ tricep (R), 3+ tricep (L), 3+ knee (R) , 3+ knee (L) Skin: normal color, no rash, warm/dry, well hydrated Lymphatic: no adenopathy Medical Decision Making Diagnostic Impression: Primary Impression: Prostate cancer Additional Impression: Urinary retention ER Course Hospital Course 73-year-old M presents to ED complaining of urinary retention. history of prostate cancer Differential diagnoses include: obstruction, UTI, BPH Clinical course Patient placed on stretcher. After initial history and physical I ordered UA, snider cather with immediate relief of obstruction UA + blood no bacteria Discussed findings with patient and daughter. Will discharge with Snider catheter and leg bag. Recommend close follow-up with his urologist and oncologist. Diagnosis - urinary retention , prostate cancer Stable and discharged home with snider + leg bag. Instructed to followup with PMD/urologist. Return to ED if symptoms recur or worsen Labs Test 04/16/19 07:55 Urine Color Pale yellow Urine Appearance Slightly cloudy Urine pH 7 (4.5-8.0) Urine Specific Sanderson 1.005 (1.005-1.035) Urine Protein Negative (NEGATIVE) Urine Glucose (UA) Negative (NEGATIVE) Urine Ketones Negative (NEGATIVE) Urine Blood 5+ (NEGATIVE) Urine Nitrite Negative (NEGATIVE) Urine Bilirubin Negative (NEGATIVE) Urine Urobilinogen Normal MG/DL (0.0-1.0) Urine Leukocyte Esterase Negative (NEGATIVE) Urine RBC 30-40 /HPF (0 - 0) Urine WBC 0-2 /HPF (0 - 0) Urine Squamous Epithelial Cells Occasional /LPF Urine Bacteria Occasional /HPF (NONE) Last Vital Signs Date Time Temp Pulse Resp B/P (MAP) Pulse Ox O2 Delivery O2 Flow Rate FiO2 04/16/19 09:06 82 20 148/89 97 Room Air 04/16/19 07:35 97.5 Status: improved Disposition: HOME, SELF-CARE Condition: Stable Referrals: Leo Dunn MD NON PHYSICIAN (PCP) Patient Instructions: Acute Urinary Retention, Male, [id number] Additional Instructions: follow up with your urologist Asher Wheat MD Apr 16, 2019 09:34
== END 2019-04-16 09:07 | disposition home or self-care (01) ==
LOC: EMR 07:43
DX: C61 Malignant neoplasm of prostate (principal); R33.9 Retention of urine, unspecified; I11.9 Hypertensive heart disease without heart failure; I25.10 Atherosclerotic heart disease of native coronary artery without angina pectoris; I25.2 Old myocardial infarction; E11.9 Type 2 diabetes mellitus without complications; Z95.5 Presence of coronary angioplasty implant and graft; Z85.828 Personal history of other malignant neoplasm of skin
CPT/HCPCS: 51702; 81003; 99284

== ENCOUNTER 2019-05-23 00:02 | Emergency (ER) | payer MEDICARE, MEDICAID ==
[~2019-05-23] VITALS: Ht 175.3 cm; Wt 113.4 kg
--- NOTE | 2019-05-23 00:15 | NUR ---
ED Nurse Note: RECIEVED PT FROM HOME, HERE WITH C/O URINARY RETENTION, PT SEEN BY PMD THIS AM, HAD MARQUES FOR LARGE PROSTATE, CATH WAS REMOVED AT MD OFFICE TODAY AND PT HAS NOT URINATED SINCE, PT WITH C/O LOWER ABD PAIN AT 8/10, PT AMBULATES SLOWLY, MD AT BEDSIDE AND NSERTED MARQUES CATH IMMEDIATELY, WILL RESUME CARE ORDERED AND CLOSELY MONITOR, PT DENIES CP AND IMMEDIATE RELIEF WHEN CATH INSERTED, PT TOLERATED WELL, NO RESISTANCE OR BLEEDING, URINE WITH LOTS OF SEDIMENTATION AND THICK CONSISTENCY, MD ALSO AWARE.
[2019-05-23 00:50] VITALS: BP 175/85
--- NOTE | 2019-05-23 00:51 | Emergency Room Report ---
History of Present Illness General Chief Complaint: Male Urogenital Problems Source: Patient, Family Member Present Illness HPI 73-year-old male with a history of prostate cancer. He had a catheter in for about a month. He just saw his doctor today and the [facility] was DC'd. Since then he is unable to urinate. He presents with chief complaint of unable to urinate and urinary retention. Similar symptom in the past. No fever chills but no nausea no vomiting. Pain is suprapubic area. 10 out of 10. Allergies: Coded Allergies: No Known Allergies (Verified , 11/07/07) Patient History Past Medical History: see triage record, old chart reviewed Past Surgical History: other Pertinent Family History: none Social History: Denies: smoking Immunizations: other Reviewed Nursing Documentation: PMH: Agreed; PSxH: Agreed Nursing Documentation-PMH Past Medical History: No History, Except For Hx Hypertension: Yes Hx Diabetes: Yes Hx Cancer: Yes - PROSTATE Hx Gastrointestinal Problems: No Hx Neurological Problems: No Review of Systems Eye: Denies: eye pain, blurred vision ENT: Denies: ear pain, nose congestion, throat swelling Respiratory: Denies: cough, shortness of breath Cardiovascular: Denies: chest pain, palpitations Gastrointestinal: Denies: abdominal pain, diarrhea, nausea, vomiting Genitourinary: Reports: retention Musculoskeletal: Denies: back pain, joint pain Skin: Denies: rash Neurological: Denies: headache, numbness Endocrine: Denies: increased thirst, increased urine Hematologic/Lymphatic: Denies: easy bruising All Other Systems: negative except mentioned in HPI Physical Exam Vital Signs Date Time Temp Pulse Resp B/P (MAP) Pulse Ox O2 Delivery O2 Flow Rate FiO2 05/23/19 00:04 97.9 64 16 175/85 (115) 95 Room Air Vitals with hypertension Sp02 EP Interpretation: reviewed, normal General Appearance: well appearing, no apparent distress, alert Head: normocephalic, atraumatic Eyes: bilateral eye PERRL, bilateral eye EOMI ENT: hearing grossly normal, normal pharynx Neck: full range of motion, supple, no meningismus Respiratory: chest non-tender, lungs clear, normal breath sounds Cardiovascular #1: regular rate, rhythm, no murmur Gastrointestinal: normal bowel sounds, non tender, no mass, no organomegaly, no bruit, non-distended Genitourinary: other - Distended bladder Musculoskeletal: back normal, gait/station normal, normal range of motion Psychiatric: mood/affect normal Medical Decision Making Diagnostic Impression: Primary Impression: Urinary retention ER Course Presents with acute urinary retention. Only place in about over liter urine output. Patient felt better now. Will discharge home. Last Vital Signs Date Time Temp Pulse Resp B/P (MAP) Pulse Ox O2 Delivery O2 Flow Rate FiO2 05/23/19 00:04 97.9 64 16 175/85 (115) 95 Room Air Status: improved Disposition: HOME, SELF-CARE Condition: Stable Referrals: NON PHYSICIAN (PCP) Additional Instructions: Follow-up with your doctor in 7 days. Return if worse. Bashir Liang MD May 23, 2019 00:51
[2019-05-23 01:00] VITALS: BP 175/85
--- NOTE | 2019-05-23 01:00 | NUR ---
ER DISCHARGE NOTE: Patient is cleared to be discharged per ERMD, pt is aox4, on room air, with stable vital signs. pt was given dc instructions, pt was able to verbalize understanding, pt id band removed without complications. pt is able to ambulate with steady gait. pt took all belongings. pt is with granddaughter, both partied re-verbalizes importance of seeing urologist in am. pt leaving ambulatory and no pain.
== END 2019-05-23 01:00 | disposition home or self-care (01) ==
LOC: EMR 00:43
DX: R33.9 Retention of urine, unspecified (principal); I10 Essential (primary) hypertension; E11.9 Type 2 diabetes mellitus without complications; Z85.46 Personal history of malignant neoplasm of prostate
CPT/HCPCS: 99281